=== PATIENT | male | born 1985 | race African-American/Black ===

== ENCOUNTER 2017-11-13 15:03 | Emergency (ER) | payer MEDICARE, OTHER ==
[~2017-11-13] VITALS: Ht 172.7 cm; Wt 102.7 kg
[~2017-11-13 15:03] MED LIST: ALPR0.5T3 PO; FURO1TAB93 PO; HYDR-3533 PO; LANTUSP SQ; LYRI100C PO; METO25 PO; MYCO500 PO; NOVOLOGP2 SQ; PROG1CAP PO; SERT-132 PO
[2017-11-13 15:09] VITALS: BP 181/89; PULSE 97; RESP 14; TEMP 98.2; O2SAT 99
--- NOTE | 2017-11-13 16:09 | RADRPT ---
EXAM DATE/TIME: 11/13/2017 15:38 [facility] COMPARISON: CT BRAIN W/O CONTRAST, November 26, 2014, 9:50. INDICATIONS : Patient fell and hit head RADIATION DOSE: 42.04 CTDIvol (mGy) MEDICAL HISTORY : Hypertension. Diabetes mellitus type 1. SURGICAL HISTORY : None. ENCOUNTER: Initial ACUITY: 1 day PAIN SCALE: 5/10 LOCATION: cranial TECHNIQUE: Multiple contiguous axial images were obtained of the head. Using automated exposure control and adj ustment of the mA and/or kV according to patient size, radiation dose was kept as low as reasonably a chievable to obtain optimal diagnostic quality images. DICOM format image data is available electro nically for review and comparison. FINDINGS: CEREBRUM: The ventricles are normal for age. No evidence of midline shift, mass lesion, hemorrhage or acute in farction. No extra-axial fluid collections are seen. POSTERIOR FOSSA: The cerebellum and brainstem are intact. The 4th ventricle is midline. The cerebellopontine angle i s unremarkable. EXTRACRANIAL: The visualized portion of the orbits is intact. SKULL: The calvaria is intact. No evidence of skull fracture. CONCLUSION: 1. No acute intracranial abnormality. Toño Pichardo MD on November 13, 2017 at 16:05 Board Certified Radiologist. This report was verified electronically.
--- NOTE | 2017-11-13 16:13 | RADRPT ---
EXAM DATE/TIME: 11/13/2017 15:38 [facility] COMPARISON: CT CERVICAL SPINE W/O CONTRAST, August 10, 2014, 22:02. INDICATIONS : Neck pain after fall today RADIATION DOSE: 24.84 CTDIvol (mGy) MEDICAL HISTORY : Hypertension. Diabetes mellitus type 1. SURGICAL HISTORY : None. ENCOUNTER: Initial ACUITY: 1 day PAIN SCALE: 6/10 LOCATION: neck TECHNIQUE: Volumetric scanning of the cervical spine was performed. Multiplanar reconstructions in the sagittal, coronal and oblique axial planes were performed. Using automated exposure control and adjustment o f the mA and/or kV according to patient size, radiation dose was kept as low as reasonably achievable to obtain optimal diagnostic quality images. DICOM format image data is available electronically f or review and comparison. FINDINGS: VERTEBRAE: Normal vertebral body height. ALIGNMENT: No evidence of subluxation. C2-C3: The bony spinal canal is normal in size. No evidence of disc bulge or herniation. The neural forami na are bilaterally patent. C3-C4: The bony spinal canal is normal in size. No evidence of disc bulge or herniation. The neural forami na are bilaterally patent. C4-C5: The bony spinal canal is normal in size. No evidence of disc bulge or herniation. The neural forami na are bilaterally patent. C5-C6: The bony spinal canal is normal in size. No evidence of disc bulge or herniation. The neural forami na are bilaterally patent. C6-C7: The bony spinal canal is normal in size. No evidence of disc bulge or herniation. The neural forami na are bilaterally patent. C7-T1: The bony spinal canal is normal in size. No evidence of disc bulge or herniation. The neural forami na are bilaterally patent. CONCLUSION: Negative CT scan of the cervical spine. Tuan Aldana MD FACR on November 13, 2017 at 16:08 Board Certified Radiologist. This report was verified electronically.
[2017-11-13] MEDS ORDERED: ZOFR4TAB3 SL (16:27)
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
[2017-11-13] MEDS ORDERED: ONDANSETRON ODT 4 MG TAB PO ONE (16:30)
== END 2017-11-13 17:02 | disposition home or self-care (01) ==
LOC: NEPD 15:03
DX: S06.0X1A Concussion with loss of consciousness of 30 minutes or less, initial encounter (principal); R11.0 Nausea; R00.0 Tachycardia, unspecified; M54.2 Cervicalgia; K21.9 Gastro-esophageal reflux disease without esophagitis; I10 Essential (primary) hypertension; E11.40 Type 2 diabetes mellitus with diabetic neuropathy, unspecified; J45.909 Unspecified asthma, uncomplicated; W18.30XA Fall on same level, unspecified, initial encounter
CPT/HCPCS: 70450; 72125